=== PATIENT | female | born 1995 | race Caucasian/White ===

== ENCOUNTER 2017-02-28 14:32 | Inpatient (IN) | payer MEDICAID ==
[~2017-02-28] VITALS: Ht 152.4 cm; Wt 62.1 kg
[~2017-02-28 14:32] MED LIST: IBUPROFEN600 MG PO; PERCOCET 5-3251 TAB PO; PRENATAL COMPLE1 TAB PO
[2017-02-28 16:01] LABS: BASOPHILS 0.2 % (0-2); EOSINOPHILS 0.4 % (0-7); HEMATOCRIT 35.4 % (36.0-48.0); HEMOGLOBIN 11.7 g/dL (12-16); IMMATURE GRANULOCYTES 0.2 % (0-5); MCH 29.2 pg (26.0-34.0); MCHC 33.1 g/dL (31.0-37.0); MCV 88.3 fL (80.0-100.0); MEAN PLATELET VOLUME 10.9 fL (7.4-10.4); MONOCYTES 5.4 % (2-11); NEUTROPHILS 82.8 % (40-80); RBC 4.01 10x6/uL (4.00-5.40); RDW 17.8 % (11.5-14.5); WBC 12.2 10x3/uL (4.8-10.8)
[2017-02-28 16:02] LABS: PLATELET COUNT 192 10x3/uL (130-400)
[2017-02-28 16:06] LABS: APPEARANCE CLOUDY (CLEAR); BACTERIA MODERATE /hpf (NONE SEEN); BILIRUBIN NEGATIVE (NEGATIVE); COLOR YELLOW (YELLOW); EPITHELIAL CELLS 25-50 /hpf (0-5); GLUCOSE NEGATIVE (NEGATIVE); KETONE NEGATIVE (NEGATIVE); LEUKOCYTE ESTERASE TRACE (NEGATIVE); MUCUS <1+ /lpf (NONE SEEN); NITRITE NEGATIVE (NEGATIVE); PROTEIN NEGATIVE (NEGATIVE); RED CELLS - URINE 0-5 /hpf (0-5); UROBILINOGEN NORMAL (NORMAL); YEAST RARE /hpf (NONE SEEN)
[2017-02-28 16:19] LABS: ALBUMIN 2.8 g/dL (3.4-5.0); ALKALINE PHOSPHATASE 54 U/L (46-116); ALT (SGPT) 15 U/L (10-68); BILIRUBIN - DIRECT 0.06 mg/dL (0.00-0.30); BILIRUBIN - INDIRECT 0.39 mg/dL (0.00-1.00); BILIRUBIN - TOTAL 0.45 mg/dL (0.2-1.3); CALC OSMOLALITY 275 mosm/kg (275-300); CALCIUM 8.3 mg/dL (8.5-10.1); CHLORIDE - SERUM 105 mmol/L (98-107); CREATININE - SERUM 0.6 mg/dL (0.6-1.3); GLUCOSE 79 mg/dL (74-106); POTASSIUM - SERUM 3.5 mmol/L (3.5-5.1); PROTEIN - SERUM 6.4 g/dL (6.4-8.2); SODIUM 139 mmol/L (136-145); UREA NITROGEN 11 mg/dL (7-18); eGFR NON AFRICAN AMERICAN > 90 mL/min (90-120)
[2017-02-28 18:32] VITALS: BP 103/58; Ht 152.4 cm; Wt 62.1 kg
--- NOTE | 2017-02-28 21:41 | NUR ---
BABY BORN AT 2134
--- NOTE | 2017-02-28 22:39 | NUR ---
FUNDUS MIDLINE, TIP OF UMBILLICUS. MODERATE LOCHIA.
[2017-02-28 22:45] VITALS: BP 101/56
--- NOTE | 2017-02-28 22:48 | NUR ---
RESOURCE ECONOMIST DILAUDID INITIATED AT THIS TIME. 0.2MG EVERY 10 MINUTES. RESOURCE ECONOMIST BUTTON GIVEN TO PT AND EXPLAINED HOW TO USE. SIMRAN VILLA
--- NOTE | 2017-02-28 23:00 | NUR ---
REC'D PT FROM PACU FOLLOWING REPEAT . PT AWAKE, ALERT AND ORIENTED X3. LUNGS CLEAR BILATERALLY. HRRR. BOWEL SOUNDS PRESENT X4. FUNDUS FIRM U/2. LOCHIA MODERATE TO MAXIM PAD. PAD CHANGED AT THIS TIME. MCBRIDE PATENT DRAINING CLEAR YELLOW URINE. SCDS IN PLACE AND CONNECTED TO PUMP. PUMP ON AND FUNCTIONING. IV TO R WRIST PATENT WITH PITOCIN INFUSING AT 125CC/HR. PT DENIES PAIN AT THIS MOMENT. WILL PROVIDE ICE CHIPS ORDERED. FAMILY ALLOWED BACK IN ROOM AT THIS TIME. SIMRAN VILLA
[2017-02-28 23:06] VITALS: BP 107/56
[2017-02-28 23:23] VITALS: BP 105/55
[2017-02-28 23:36] VITALS: BP 110/58
[2017-02-28 23:59] VITALS: BP 120/57
--- NOTE | 2017-03-01 00:22 | NUR ---
PT C/O PAIN 6/10 CRAMPING TO ABDOMEN. TORADOL 30MG ADMINISTERED SIVP AT THIS TIME. PT TURNED, MAXIM CARE DONE, PADS CHANGED. COUGHED AND DEEP BREATHE USING INCENTIVE SPIROMETER INSTRUCTED PER THIS RN. ICE CAP TO ABDOMEN PROVIDED. SIMRAN VILLA
[2017-03-01 00:30] VITALS: BP 105/55
[2017-03-01] MEDS ORDERED: FERROUS SULFAT325 MG PO (00:54)
--- NOTE | 2017-03-01 02:02 | NUR ---
PT AT THIS TIME. ASSISTED WITH LATCH AND POSITION. DENIES OTHER NEEDS. SIMRAN VILLA
--- NOTE | 2017-03-01 02:10 | NUR ---
PT CALLS VIA CL. STATES THAT SHE IF FEELING VERY SLEEPY "LIKE I CAN'T HOLD MY EYES OPEN." PT REQUEST THAT BE TAKEN TO NBN. INFANT RESWADDLED AND BROUGHT TO NBN PER REQUEST. PT REPORTS THAT SHE NURSED FOR 9 MINUTES ON LEFT SIDE AND 3 MINUTES ON RIGHT SIDE. DENIES ADDITIONAL NEEDS AT THIS TIME. BED WITH UPPER SIDE RAILS RAISED X2. CL AND PHONE WITHIN REACH. WILL CONT TO MONITOR AND ASSIST PRN. PT NOW ABLE TO MOVE BLE.
[2017-03-01 04:30] VITALS: BP 100/52
--- NOTE | 2017-03-01 04:30 | NUR ---
PT AWAKE AND ALERT, ON CHEST. VS TAKEN AND WNL. I/O DONE AND CHARTED. INFANT PLACED IN CRIB. PT TURNED, COUGH AND DEEP BREATHED INSTRUCTED PER THIS RN. MAXIM CARE DONE AND PADS CHANGED. INFANT PLACED SKIN TO SKIN ON PT CHEST. SIMRAN VILLA
--- NOTE | 2017-03-01 05:00 | NUR ---
LEMON MESA GRANDE PROVIDED PER PT REQUEST. FRESH ICE CAP TO ABDOMEN. DENIES FURTHER NEEDS. SIMRAN VILLA
--- NOTE | 2017-03-01 06:18 | NUR ---
PT ATTEMPTING TO BREASTFEED AT THIS TIME. C/O PAIN 01/25. TORADOL ADMINISTERED. SEE E-MAR FOR DOCUMENTATION. SIMRAN VILLA
[2017-03-01 06:27] LABS: BASOPHILS 0.1 % (0-2); EOSINOPHILS 2.3 % (0-7); HEMATOCRIT 31.1 % (36.0-48.0); HEMOGLOBIN 10.1 g/dL (12-16); IMMATURE GRANULOCYTES 0.2 % (0-5); MCH 28.6 pg (26.0-34.0); MCHC 32.5 g/dL (31.0-37.0); MCV 88.1 fL (80.0-100.0); MEAN PLATELET VOLUME 11.2 fL (7.4-10.4); MONOCYTES 6.2 % (2-11); NEUTROPHILS 74.2 % (40-80); RBC 3.53 10x6/uL (4.00-5.40)
[2017-03-01 06:28] LABS: PLATELET COUNT 152 10x3/uL (130-400); WBC 8.7 10x3/uL (4.8-10.8)
[2017-03-01 07:34] VITALS: BP 106/53
--- NOTE | 2017-03-01 07:34 | NUR ---
AWAKE HOLDING INFANT IN ARMS. SHIFT ASSESSMENT COMPLETED. U/U FIRM MIDLINE. IV NS 20 U PITOCIN INFUSING AT 125 ML/HR RIGHT WRIST. MCBRIDE DRAINING YELLOW URINE. LOCHIA SEROSA SCANT. SCDS IN PLACE AND PUMP ON. SIDE RAILS UP X 2, CALL LIGHT IN REACH. CONTROL ROOM SUPERVISOR CONTROL IN REACH. ENCOURAGE USE OF CONTROL ROOM SUPERVISOR PRN FOR RELIEF OF ABD PAIN/CRAMPS/INCISIONAL PAIN. PT TEACHING COMPLETED. ANTICIPATED DC OF IV, MCBRIDE, DRESSING, SHOWER AND AMBULATION TODAY. VERBALIZED UNDERSTANDING.
--- NOTE | 2017-03-01 08:47 | NUR ---
DR RAUSCH VISITING WITH PATIENT.
--- NOTE | 2017-03-01 09:30 | NUR ---
SITTING UP IN BED. VISITORS IN ROOM HOLDING INFANT. IV FLUIDS DC'D. SALINE LOCK FLUSED X 3 PORTS. MCBRIDE CATHETER DC'D WITH 75 ML URINE IN BAG. SCD'S REMAIN IN PLACE. INSTRUCTED ON PAIN MEDICATIONS AND TO CALL IF ANYTHING IS NEEDED. PLAN TO VOID BEFORE 4 HOURS, SHOWER WHEN UP TO BR. GETTING READY TO BREASTFEED AT THIS TIME. SIDE RAILS UP X 2, CALL LIGHT IN REACH. INSTRUCTED NOT TO GET OUT OF BED WITHOUT ASSISTANCE FIRST TIME.
--- NOTE | 2017-03-01 10:27 | NUR ---
AMBULATED IN CONWAY TO NURSERY AND BACK TO ROOM. TOLERATED WELL. GAIT WNL. SANDWICH TRAY AND DRINK GIVEN. CURRENTLY SITTING UP IN CHAIR EATING AND TALKING TO VISITOR. PLANS TO SHOWER AFTER EATING. CALL LIGHT PLACED IN REACH. TO CALL WHEN READY TO GET UP.
--- NOTE | 2017-03-01 11:50 | NUR ---
UP TO BATHROOM TO VOID. VOIDED 300 ML URINE, LOCHIA SMALL. AFTER VOIDING ASSISTED TO SHOWER. COMPLETE LINEN CHANGE DONE. INFANT IN CRIB IN ROOM WITH PT MOTHER IN ATTENDANCE.
[2017-03-01 12:02] LABS: HIV 1 & 2- RAPID SCREEN NEGATIVE (NEGATIVE)
--- NOTE | 2017-03-01 12:10 | NUR ---
COMPLETED SHOWER. INCISION CLEAN AND DRIED. MYA INTACT. INSTRUCTED ON USE OF PERIPAD OVER INCISION. CURRENTLY SITTING IN CHAIR PREPARING FOR . SAYS PAIN IS 4/10 "BETTER THAN I EXPECTED". DECLINES PAIN MEDICATION AT THIS TIME. VISITORS IN ROOM. REGULAR DIET AT BEDSIDE.
--- NOTE | 2017-03-01 13:42 | NUR ---
C/O INCISIONAL PAIN. 03/27 STABBING. DISCUSSED PAIN MANAGEMENT OPTIONS. DESIRES MOTRIN ONLY AT THIS TIME. TO LET NURSE KNOW IF ANYTHING ADDITIONAL IS NEEDED. FRESH ICE PACK TO INCISION GIVEN. MOTRIN 600 MG WAS GIVEN PO. IN ARMS. LAB HERE TO DRAW BLOOD. SIDE RAILS UP X 2, CALL LIGHT IN REACH. VISITORS IN ROOM.
[2017-03-01 13:49] LABS: BASOPHILS 0 % (0-2); HEMATOCRIT 31.3 % (36.0-48.0); HEMOGLOBIN 10.2 g/dL (12-16); IMMATURE GRANULOCYTES 0.4 % (0-5); LYMPHOCYTES 12.4 % (15-50); MCH 28.9 pg (26.0-34.0); MCHC 32.6 g/dL (31.0-37.0); MCV 88.7 fL (80.0-100.0); MEAN PLATELET VOLUME 10.1 fL (7.4-10.4); MONOCYTES 7.5 % (2-11); NEUTROPHILS 76.7 % (40-80); PLATELET COUNT 157 10x3/uL (130-400); RBC 3.53 10x6/uL (4.00-5.40); WBC 8.4 10x3/uL (4.8-10.8)
--- NOTE | 2017-03-01 15:25 | NUR ---
INFANT TO ROOM. AROUSED PT FROM SLEEP FOR . 2/10 ON PAIN SCALE DENIES NEEDING ANYTHING FOR PAIN AT THIS TIME. APPLE JUICE AND FRESH WATER GIVEN. TO CALL IF ANYTHING IS NEEDED. SIDE RAILS UP X 2, CALL LIGHT IN REACH.
--- NOTE | 2017-03-01 15:59 | NUR ---
REQUESTED PAIN MEDICATION FOR C/O ABDOMINAL CRAMPING 03/27. DISCUSSED PAIN MEDICATION OPTIONS. DESIRES TO TRY "THE 10". NORCO 10 MG GIVEN PO FOR RELIEF OF PAIN. ALSO C/O FEELING GAS. DISCUSSED RELIEF MEASURES INCLUDING RLD, AMBULATING AND WARM FLUIDS. CURRENTLY . SIDE RAILS UP X 2, CALL LIGHT IN REACH. INSTRUCTED NOT TO GET UP WITHOUT HELP.
[2017-03-01 16:02] VITALS: BP 102/53
--- NOTE | 2017-03-01 16:09 | NUR ---
U/U FIRM, UP TO BATHROOM TO VOID. LOCHIA SEROSA SMALL, CLEAN PERIPADS X 2 ON, VOIDED 500 ML URINE. RETURNED TO BED WITH ASSISTANCE. INFANT IN CRIB. SCD'S PLACED. TO CALL IF NEEDING TO GET OOB. VERBALIZED UNDERSTANDING.
--- NOTE | 2017-03-01 16:10 | NUR ---
ICE PACK IN TOWEL REPLACED ON ABDOMINAL INCISION.
--- NOTE | 2017-03-01 16:20 | NUR ---
REQUESTS TO GO TO NURSERY WHILE SHE REST. SIDE RAILS UP, CALL LIGHT IN REACH, LIGHTS TURNED ON LOW.
--- NOTE | 2017-03-01 17:01 | NUR ---
AROUSED EASILY FROM SLEEP. 1/10 PAIN SCALE. DENIES NEEDING ANYTHING.
--- NOTE | 2017-03-01 18:25 | NUR ---
SITTING UP IN BED EATING DINNER. VISITORS AT BEDSIDE. DENIES NEEDING ANYTHING. REMINDED TO GET UP AGAIN THIS PM AND AMBULATE IN CONWAY, ALSO THAT SHE CAN SHOWER AGAIN IF SHE DESIRES. SAYS SHE SLEPT AND FEELS BETTER. INFANT IN ROOM. CALL LIGHT IN REACH.
[2017-03-01 19:35] VITALS: BP 101/54
--- NOTE | 2017-03-01 19:41 | NUR ---
RN TO PT BS FOR JANET. PT RESTING IN BED IN SEMI-FOWLERS POSITION, HOLDING , IN NO ACUTE DISTRESS. PT IS A 21YO G2 NOW P2 WITH REPEAT C/S YESTERDAY @ 2134. INFANT @ 34.0 WKS GESTATION. AAOX3. HR REGULAR. LUNGS CTAB. ABDOMEN TENSE AND MILDLY DISTENDED. BOWEL SOUNDS HYPOACTIVE TIMES 4. LOWER ABDOMINAL INCISION NOTED. MYA IN PLACE TO LCTS INCISON, INCISON WELL PROXIMATED WITH NO REDNESS, EDEMA, OR DRAINAGE NOTED TO SITE. FUNDUS NOT PALPATED. PT STATES SHE DID PASS GAS AT ONE POINT DURING THE DAY. STATES SHE HAS NOT HAS A BM SINCE SURGERY. DENIES DIFFICULTY VOIDING. LOCHIA RUBRA SCANT. MAXIM PAD AND PANTIES IN PLACE. PT TOLERATING REGULAR DIET WITHOUT DIFFICULTY. NO SWELLING NOTED TO UPPER OR LOWER EXTREMITIES BILATERALLY. 18G SL IN PLACE TO RIGHT WRIST. 1400 CBC REVIEWED, WNL, SL REMOVED AT THIS TIME, TIP INTACT, PRESSURE DRESSING PLACED TO SITE. PT RATES PAIN 3/10, DENIES THE NEED FOR MEDICATION AT THIS TIME. PT DENIES ANY FURTHER NEEDS. NURSERY RN NOW AT PT BS TO ASSIST WITH EFFORT. BED IN LOW POSITION, SIDE RAILS UP TIMES 2, CALL LIGHT AND PHONE IN REACH. REMAINS AT PT BS FOR COUPLET CARE. WILL CONT TO MONITOR PT STATUS.
--- NOTE | 2017-03-01 19:49 | NUR ---
RN CALLED TO PT BS. PT STATES IS FINISHED WITH BREASTFEED. REQUESTS BE TRANSFERED TO NURSERY TO ALLOW MOTHER TO USE THE REST ROOM AND AMBULATE. TRANSPORTED TO NURSERY VIA OPEN CRIB. REPORT GIVEN TO NURSERY RN.
--- NOTE | 2017-03-01 20:14 | NUR ---
PT AMBULATING IN CONWAY WITH NO ASSISTANCE. PT TOLERATING WELL.
--- NOTE | 2017-03-01 22:17 | NUR ---
RN TO PT BS FOR ROUNDS. PT RESTING IN BED IN SEMI-FOWLERS POSITION, , IN NO ACUTE DISTRESS. PT DENIES ANY NEEDS AT THIS TIME. BED IN LOW POSITION, SIDE RAILS UP TIMES 2, CALL LIGHT AND PHONE IN REACH. REMAINS AT PT BS FOR SUPPORT AND ASSISTANCE. WILL CONT TO MONITOR PT STATUS.
[2017-03-01 23:33] VITALS: BP 96/48
--- NOTE | 2017-03-01 23:34 | NUR ---
RN TO PT BS FOR VS. PT RESTING IN BED IN SEMI-FOWLERS POSITION, ATTEMPTING TO BREASTFEED , IN NO ACUTE DISTRESS. VS TAKEN, WNL. PT REQUESTS NURSERY RN TO COME ASSIST WITH EFFORT. BED IN LOW POSITION, SIDE RAILS UP TIMES 2, CALL LIGHT AND PHONE IN REACH. INFANT REMAINS AT PT BS FOR COUPLET CARE. WILL CONT TO MONITOR PT STATUS.
--- NOTE | 2017-03-02 00:19 | NUR ---
RN CALLED TO PT BS. PT REQUESTS INFANT BE TAKEN TO NURSERY TO ALLOW PT TO GO TO RESTROOM AND ALLOW HER TO REST. INFANT TRANSPORTED TO NURSERY VIA OPEN CRIB FOR OBSERVATION. REPORT GIVEN TO NURSERY RN. PT DENIES ANY FURTHER NEEDS. BED IN LOW POSITION, SIDE RAILS UP TIMES 2, CALL LIGHT AND PHONE IN REACH. WILL CONT TO MONITOR PT STATUS.
--- NOTE | 2017-03-02 00:30 | NUR ---
PT CALLS VIA CL. PAIN 03/27 WITH BURNING AND STINGING TO INCISION, INTERMITTENT ABD CRAMPING. MOTRIN AND NORCO GIVEN PER ORDERS AND PT REQUEST. ICE WATER GIVEN. DENIES ADDITIONAL NEEDS. RESPIRATIONS REGULAR AND UNLABORED. BED IN LOW POSITION WITH UPPER SIDE RAILS RAISED X2. CL AND PHONE WITHIN REACH. WILL CONT TO MONITOR.
--- NOTE | 2017-03-02 01:20 | NUR ---
PAIN REASSESSMENT COMPLETED. PT RESTING WITH EYES CLOSED IN SEMI FOWLERS POSITION. DID NOT OPEN EYES WITH RN ENTERING ROOM. RESPIRATIONS REGULAR AND UNLABORED. BED IN LOW POSITION WITH UPPER SIDE RAILS RAISED X2. CL AND PHONE WITHIN REACH.
[2017-03-02 03:07] VITALS: BP 103/54
--- NOTE | 2017-03-02 03:08 | NUR ---
RN TO PT BS FOR VS. PT RESTING IN BED IN SEMI-FOWLERS POSITION, WITH EYES CLOSED, IN NO ACUTE DISTRESS. REPSIRATIONS EVEN AND UNLABORED. PT AWAKENS EASILY WHEN SPOKEN TO. VS TAKEN, WNL. PT DENIES ANY FURTHER NEEDS AT THIS TIME. BED IN LOW POSITION, SIDE RAILS UP TIMES 2, CALL LIGHT AND PHONE IN REACH. WILL CONT TO MONITOR PT STATUS.
--- NOTE | 2017-03-02 04:34 | NUR ---
RN CALLED TO PT BS. PT DONE PUMPING. BREAST MILK TAKEN TO NURSERY AND GIVEN TO NURSERY RN. PT DENIES ANY FURTHER NEEDS. BED IN LOW POSITION, SIDE RAILS UP TIMES 2, CALL LIGHT AND PHONE IN REACH. WILL CONT TO MONITOR PT STATUS.
--- NOTE | 2017-03-02 06:40 | NUR ---
RN CALLED TO PT BS. PT ASKS FOR UPDATE ON . RN WILL HAVE NURSERY RN CALL AND GIVE REPORT ON INFANT. PT DENIES ANY FURTHER NEEDS. BED IN LOW POSITION, SIDE RAILS UP TIMES 2, CALL LIGHT AND PHONE IN REACH. WILL CONT TO MONITOR PT STATUS.
--- NOTE | 2017-03-02 07:08 | NUR ---
ASSUME CARE OF THIS PATIENT. SITTING UP IN BED REQUESTED ADDITIONAL DISPOSABLE UNDERWEAR/PADS. INFANT IN ARMS. NO REQUESTS AT THIS TIME. WILL COMPLETE SHIFT ASSESSMENT AFTER AND BREAKFAST. SIDE RAILS UP X 2, CALL LIGHT IN REACH. UP AD SURINDER TO BATHROOM.
[2017-03-02 08:19] VITALS: BP 108/53
--- NOTE | 2017-03-02 08:28 | NUR ---
SHIFT ASSESSMENT COMPLETED. SITTING UP IN BED GETTING READY TO EAT BREAKFAST. INFANT IN CRIB. SAYS SHE BREASTFEED FOR TOTAL OF 20 MINS. DENIES NEEDING ANYTHING AT THIS TIME. UP AD SURINDER. TO CALL WHEN READY FOR SHOWER. HAS BEEN PASSING GAS BUT NO BM YET.
--- NOTE | 2017-03-02 10:38 | NUR ---
SITTING UP IN BED WITH IN ARMS. REMINDED NOT TO SLEEP WITH IN BED AND DISCUSSED REASONING. VERBALIZED UNDERSTANDING. UP TO BATHROOM TO SHOWER. VOIDED WITHOUT DIFF. COMPLETE LINEN CHANGE DONE. FRESH WATER. TO NURSERY TO SHOWER.
--- NOTE | 2017-03-02 11:14 | NUR ---
COMPLETED AMBULATION IN CONWAY. TO ROOM FOR . ASSISTED PT TO WAKE UP. DENIES NEEDING ANYTHING FOR PAIN AT THIS TIME. SAYS FEELS SOME GAS UPPER ABDOMEN. INSTRUCTED ON RELIEF MEASURES. VERBALIZED UNDERSTANDING. CALL LIGHT IN REACH.
--- NOTE | 2017-03-02 12:39 | NUR ---
PT IN HIGH FOWLERS POSITION CHANGING INFANT DIAPER. PT RATES PAIN 8/10 AT INCISION SITE AND REQUESTS PAIN MEDICATION. NORCO 10/325MG AND MOTRIN 600MG GIVEN PO. PT DENIES FURTHER NEEDS AT THIS TIME.
--- NOTE | 2017-03-02 14:26 | NUR ---
SITTING UP IN BED ON CELL PHONE. STATES "I'M NOT FEELING ANY PAIN RIGHT NOW. I AM ACTUALLY FUNCTIONING. SHE GAVE ME MOTRIN AND HYDRO. IM NOT ASLEEP." DENIES NEEDING ANYTHING AT THIS TIME. IN NURSERY. SIDE RAILS UP X 2. CALL LIGHT IN REACH.
--- NOTE | 2017-03-02 17:10 | NUR ---
AMBULATING IN ROOM. VISITORS AT BEDSIDE. REQUESTED EXTRA WASHCLOTHES TO PROVIDE CARE TO HER OLDER CHILD. NO OTHER REQUESTS.
--- NOTE | 2017-03-02 18:50 | NUR ---
SHIFT REPORT FROM DAY SHIFT
[2017-03-02 19:10] VITALS: BP 106/53
--- NOTE | 2017-03-02 19:10 | NUR ---
ASSESSMENT PER FLOW SHEET, VS OBTAINED, FF, ML, U/1, REPORTS LITE BLEEDING WITH NO CLOTS, BIKINI INC WITH MYA CDI WITH NO DRAINAGE NOTED, MAXIM PAD OVER INC FOR COMFORT AND MOISTURE CONTROL, PT REPORTS FLATUS, NO BM AND VOIDING BY SELF WITH NO DIFFICULTY, PT DENIES PAIN, REQUESTED AND SERVED FRESH H20, PT DENIES FURTHER NEEDS, BABY TO PT'S ARMS, TRASH REMOVED
--- NOTE | 2017-03-02 20:05 | NUR ---
PT CONSUMER RELATIONS COMPLAINT CLERK LIGHT, UPON ENTERING ROOM, PT IS TALKING ON PHONE AND VISITING WITH FRIEND, PT REQUESTED AND SERVED COLA/LEMON MI'KMAQ SODA, DENIES FURTHER NEEDS OR PAIN AT THIS TIME
--- NOTE | 2017-03-02 21:08 | NUR ---
PT TALKING ON PHONE, C/O PAIN, REQUESTED AND ADM MOTRIN PO PER MD ORDERS, SEE EMAR, PT DENIES FURTHER NEEDS
--- NOTE | 2017-03-02 22:14 | NUR ---
PT SITTING ON SIDE OF BED, SMILING, USING BREAST PUMP AT THIS TIME, REQUESTED AND PROVIDED ANOTHER GOWN, DENIES FURTHER NEEDS OR PAIN, FEMALE FRIEND AT BEDSIDE
[2017-03-02 23:30] VITALS: BP 106/51
--- NOTE | 2017-03-02 23:30 | NUR ---
RN TO PT BS FOR VS. PT SITTING IN BED IN NO ACUTE DISTRESS. VS TAKEN, WNL. PT REQUESTS NIPPLE CREAM, PROVIDED AT THIS TIME. PT DENIES ANY FURTHER NEEDS. BED IN LOW POSITION, SIDE RAILS UP TIMES 2, CALL LIGHT AND PHONE IN REACH. FRIEND TIMES 1 REMAINS AT PT BS FOR SUPPORT AND ASSISTANCE. WILL CONT TO MONITOR PT STATUS.
--- NOTE | 2017-03-03 | NUR ---
RN CALLED TO PT BS. PUMPED BREASTMILK PROVIDED FOR RN TO TAKE TO NURSERY. TAKEN AT THIS TIME. PT DENIES ANY FURTHER NEEDS. BED IN LOW POSITION, SIDE RAILS UP TIMES 2, CALL LIGHT AND PHONE IN REACH. FRIEND TIMES 1 AT PT BS FOR SUPPORT AND ASSISTANCE. WILL CONT TO MONITOR PT.
--- NOTE | 2017-03-03 03:02 | NUR ---
RN TO PT BS FOR ROUNDS. PT RESTING IN BED IN SEMI-FOWLERS POSITION, WITH EYES CLOSED, IN NO ACUTE DISTRESS. RESPIRATIONS EVEN AND UNLABORED. BED IN LOW POSITION, SIDE RAILS UP TIMES 2, CALL LIGHT AND PHONE IN REACH. WILL CONT TO MONITOR PT STATUS.
--- NOTE | 2017-03-03 03:54 | NUR ---
RN CALLED TO PT BS. BREAST MILK GIVEN TO TRANSPORT TO NURSERY. TAKEN TO NURSERY AND GIVEN TO NURSERY RN. PT DENIES ANY FURTHER NEEDS AT THIS TIME. BED IN LOW POSITION, SIDE RAILS UP TIMES 2, CALL LIGHT AND PHONE IN REACH. WILL CONT TO MONITOR PT STATUS.
--- NOTE | 2017-03-03 04:07 | NUR ---
RN CALLED TO PT BS. PT REQUESTS SANDWICH TRAY. SANDWICH TRAY AND CHIPS PROVIDED TO PT AT THIS TIME WITH FRESH WATER. PT DENIES ANY FURTHER NEEDS. BED IN LOW POSITION, SIDE RAILS UP TIMES 2, CALL LIGHT AND PHONE IN REACH. WILL CONT TO MONITOR PT STATUS.
--- NOTE | 2017-03-03 05:02 | NUR ---
RN CALLED TO PT BS. PT C/O PAIN, RATES 02/24, REQUESTS MEDICATION. 1 TAB IBUPROFEN AND 1 TAB NORCO 10 PROVIDED TO PT AT THIS TIME. PT DENIES ANY FURTHER NEEDS. BED IN LOW POSITION, SIDE RAILS UP TIMES 2, CALL LIGHT AND PHONE IN REACH. WILL CONT TO MONITOR PT STATUS.
--- NOTE | 2017-03-03 07:30 | NUR ---
PT AMBULATORY IN ROOM. CARING FOR INFANT. DENIES PAIN OR NEEDS.
[2017-03-03 07:31] VITALS: BP 115/57
--- NOTE | 2017-03-03 08:47 | NUR ---
PT SITTING UP IN BED. VSS. HRRR WITHOUT AUDIBLE MURMUR. BBS CLEAR. BS X 4. ABDOMEN SOFT/NON-DISTENDED. PT STATES PASSING GAS. NO BM YET. FUNDUS FIRM AT U/1. RUBRA LOCHIA SCANT AMT. NO CLOTS OR HEAVY BLEEDING PER PT STATES. ABDOMINAL INCISION WITH MYA. HALF-DOLLAR SIZED AREA OF BRUISING NOTED TO MATERNAL LEFT AND BELOW INCISION. NO SWELLING OR DRAINAGE NOTED TO INCISION. NEG HOMANS' SIGN. PPP. NO EDEMA NOTED TO BLE. PT DENIES PAIN OR NEEDS. STATES HAS NO ONE TO COME FILL RX UNTIL AFTER 4 PM TODAY.
--- NOTE | 2017-03-03 09:00 | NUR ---
PT AMBULATORY IN HALLS. MONIQUE ACTIVITY WELL.
--- NOTE | 2017-03-03 10:00 | NUR ---
PT AMBULATORY IN HALLS. DENIES PAIN OR NEEDS.
--- NOTE | 2017-03-03 10:50 | NUR ---
[facility] TO DELIVER PT PRESCRIPTIONS TO PT THIS AFTERNOON.
--- NOTE | 2017-03-03 11:00 | NUR ---
PT INSTRUMENTATION CONTROLS ENGINEER LIGHT. REQUESTING COFFEE.
[2017-03-03] MEDS ORDERED: HYDROCODONE-APA1 TAB PO (11:15)
[2017-03-03] MEDS ORDERED: IBUPROFEN600 MG PO (11:16)
--- NOTE | 2017-03-03 12:38 | NUR ---
PT AMBULATORY IN ROOM. CARING FOR INFANT. REQUESTS AND RECEIVES PERIPADS.
--- NOTE | 2017-03-03 13:55 | NUR ---
DISCHARGE INSTRUCTIONS GIVEN TO PT. PT VERBALIZES UNDERSTANDING OF ALL INSTRUCTIONS.COPIES GIVEN TO PT. PT PREPARES FOR DISCHARGE.
--- NOTE | 2017-03-03 14:10 | NUR ---
PT TRANSFERED VIA AMBULATORY TO ROOM 1219. PT ORIENTED TO ROOM, BED AND PHONE NUMBERS FOR NURSERY. PT IN ROOMING IN STATUS.
[2017-03-04 03:09] LABS: RAPID PLASMA REAGIN Non Reactive (Non Reactive)
== END 2017-03-03 14:10 | disposition home or self-care (01) | DRG 766 ==
LOC: D.LDO 14:32 → D.LD 18:23
PROVIDERS: ADMIT Obstetrics & Gynecology
PROC: 10D00Z1 Extraction of Products of Conception, Low, Open Approach (ICD-10-PCS; principal; 2017-02-28 20:47)
DX: O34.219 Maternal care for unspecified type scar from previous cesarean delivery (principal); Z3A.34 34 weeks gestation of pregnancy; Z37.0 Single live birth

== ENCOUNTER 2017-07-24 01:19 | Emergency (ER) | payer MEDICAID ==
[2017-02-28 18:32] VITALS: BMI 26.8
[~2017-07-24 01:19] MED LIST changes: +FERROUS SULFAT325 MG PO; +HYDROCODONE-APA1 TAB PO
[2017-07-24 02:08] LABS: APPEARANCE HAZY (CLEAR); BILIRUBIN NEGATIVE (NEGATIVE); COLOR YELLOW (YELLOW); GLUCOSE NEGATIVE (NEGATIVE); KETONE NEGATIVE (NEGATIVE); NITRITE NEGATIVE (NEGATIVE); PROTEIN 1+ mg/dL (NEGATIVE); UROBILINOGEN NORMAL (NORMAL)
[2017-07-24 02:09] LABS: BACTERIA MODERATE /hpf (NONE SEEN); EPITHELIAL CELLS 0-5 /hpf (0-5); MUCUS >1+ /lpf (NONE SEEN); RED CELLS - URINE 0-5 /hpf (0-5)
== END 2017-07-24 03:54 | disposition home or self-care (01) ==
LOC: D.ER 01:19
PROVIDERS: Emergency Medicine
DX: N39.0 Urinary tract infection, site not specified (principal)

== ENCOUNTER 2017-12-30 17:39 | Emergency (ER) | payer MEDICAID ==
[2017-02-28 18:32] VITALS: BMI 26.8
[2017-12-30 19:07] LABS: BASOPHILS 0.2 % (0-2); EOSINOPHILS 1.2 % (0-7); HEMATOCRIT 39.2 % (36.0-48.0); HEMOGLOBIN 13.2 g/dL (12-16); IMMATURE GRANULOCYTES 0.3 % (0-5); MCH 30.1 pg (26.0-34.0); MCHC 33.7 g/dL (31.0-37.0); MCV 89.3 fL (80.0-100.0); MEAN PLATELET VOLUME 11.8 fL (7.4-10.4); MONOCYTES 6.2 % (2-11); NEUTROPHILS 70.1 % (40-80); PLATELET COUNT 176 10x3/uL (130-400); RBC 4.39 10x6/uL (4.00-5.40); RDW 12.8 % (11.5-14.5); WBC 11.8 10x3/uL (4.8-10.8)
[2017-12-30 19:55] LABS: APPEARANCE HAZY (CLEAR); BILIRUBIN NEGATIVE (NEGATIVE); COLOR RED (YELLOW); GLUCOSE NEGATIVE (NEGATIVE); KETONE NEGATIVE (NEGATIVE); NITRITE NEGATIVE (NEGATIVE); PROTEIN 1+ mg/dL (NEGATIVE); SPECIFIC GRAVITY 1.025 (1.005-1.020); UROBILINOGEN NORMAL (NORMAL)
[2017-12-30 19:57] LABS: RED CELLS - URINE >50 /hpf (0-5)
[2017-12-30 19:58] LABS: WHITE CELLS - URINE 0-5 /hpf (0-5)
[2017-12-30 19:59] LABS: BACTERIA MODERATE /hpf (NONE SEEN)
== END 2017-12-30 21:45 | disposition home or self-care (01) ==
LOC: D.ER 17:39
PROVIDERS: Emergency Medicine; Nurse Practitioner Family
DX: O20.9 Hemorrhage in early pregnancy, unspecified (principal); Z3A.00 Weeks of gestation of pregnancy not specified